=== PATIENT | female | born 1985 | race Caucasian/White ===

== ENCOUNTER 2018-02-08 17:11 | Outpatient (CLI) | payer MEDICAID, OTHER ==
[2018-02-08] MEDS: LACTATED RINGER'S 1,000 ML IV ×2 (17:57→20:02)
[2018-02-08] MEDS: BETAMET NA PHOS/AC(6 MG/ML) 5ML INJ IM (17:58)
[2018-02-08 18:34] LABS: ADD UMIC YES; UR ASCORBIC ACID 40 mg/dL (NEGATIVE); UR BILIRUBIN (Dip) NEGATIVE (NEGATIVE); UR BLOOD (Dip) NEGATIVE (NEGATIVE); UR CLARITY CLEAR (CLEAR); UR COLOR YELLOW (YELLOW); UR GLUCOSE (Dip) NEGATIVE (NEGATIVE); UR KETONES (Dip) NEGATIVE (NEGATIVE); UR LEUKOCYTE ESTERASE (Dip) TRACE Leu/ul (NEGATIVE); UR NITRITE (Dip) NEGATIVE (NEGATIVE); UR RBC 1 /HPF (0-5); UR SPECIFIC GRAVITY (Dip) 1.014 (1.003-1.030); UR TOTAL PROTEIN (Dip) NEGATIVE (NEGATIVE); UR UROBILINOGEN (Dip) NEGATIVE (NEGATIVE); UR WBC 1 /HPF (0-5)
[2018-02-08] MEDS: TERBUTALINE 1 MG/ML INJ SC (20:02)
== END 2018-02-08 21:40 | disposition home or self-care (01) ==
LOC: OBT 17:11 → L-D 17:12 → OBT 21:40
DX: O60.03 Preterm labor without delivery, third trimester (principal); Z3A.34 34 weeks gestation of pregnancy
CPT/HCPCS: 76818; 81001; 96360; 96372

== ENCOUNTER 2018-02-09 18:17 | Outpatient (CLI) | payer MEDICAID ==
[2018-02-09] MEDS: BETAMET NA PHOS/AC(6 MG/ML) 5ML INJ IM (18:36)
== END 2018-02-09 19:44 | disposition home or self-care (01) ==
LOC: OBT 18:17 → L-D 18:19 → OBT 19:44
DX: O62.9 Abnormality of forces of labor, unspecified (principal); Z3A.34 34 weeks gestation of pregnancy
CPT/HCPCS: 76818; 96372

== ENCOUNTER 2018-03-10 06:50 | Inpatient (IN) | payer MEDICAID ==
[2018-03-10] MEDS ORDERED: CARBOPROST 250 MCG INJ IM (08:00)
[2018-03-10] MEDS ORDERED: METHYLERGONOVINE 0.2 MG INJ IM (08:00)
[2018-03-10] MEDS ORDERED: BUTORPHANOL 2 MG INJ IV (08:00)
[2018-03-10] MEDS ORDERED: OXYCODONE/ACETAMINOPHEN (5/325) TAB PO (08:00)
[2018-03-10] MEDS ORDERED: LIDOCAINE 1% (MPF) 30 ML INJ INJ (08:00)
[2018-03-10] MEDS ORDERED: IBUPROFEN 600 MG TAB PO (08:00)
[2018-03-10] MEDS ORDERED: MISOPROSTOL 200 MCG TAB PR (08:00)
[2018-03-10] MEDS ORDERED: OXYTOCIN 30 UNITS/LR 500 ML IV (08:00)
[2018-03-10 08:12] LABS: ADD MAN DIFF? NO
[2018-03-10 08:19] LABS: BASOPHILS % 0.4 % (0.0-2.0); EOSINOPHILS # 0.2 10^3/ul (0.0-0.5); EOSINOPHILS % 2.5 % (0.0-7.0); HEMATOCRIT 39.5 % (37.0-47.0); HEMOGLOBIN 13.8 g/dl (12.0-16.0); LYMPHOCYTES # 1.5 10^3/ul (0.8-2.9); MEAN CORPUSCULAR HEMOGLOBIN 31.3 pg (29.0-33.0); MEAN CORPUSCULAR HGB CONC 34.9 g/dl (32.0-37.0); MEAN CORPUSCULAR VOLUME 89.6 fl (82.0-101.0); MEAN PLATELET VOLUME 9.6 fl (7.4-10.4); MONOCYTE # 0.7 10^3/ul (0.3-0.9); MONOCYTES % 8.8 % (0.0-11.0); NEUTROPHIL # 5.9 10^3/ul (1.6-7.5); NEUTROPHILS % 69.7 % (39.0-77.0); PLATELET COUNT 274 10^3/UL (140-415); RED BLOOD COUNT 4.41 10^6/ul (4.20-5.40); RED CELL DISTRIBUTION WIDTH 12.8 % (11.5-14.5)
[2018-03-10 08:19] LABS: WHITE BLOOD COUNT 8.4 10^3/ul (4.8-10.8)
[2018-03-10] MEDS: LACTATED RINGER'S 1,000 ML IV ×3 (08:21→10:28)
[2018-03-10 08:43] LABS: INR 0.93; PROTIME 12.5 Sec (11.9-14.9)
[2018-03-10 08:44] LABS: PARTIAL THROMBOPLASTIN TIME 31.3 Sec (25.0-35.0)
[2018-03-10] MEDS ORDERED: FENTAnyl 2MCG/ML-ROPIV 0.2% 100 ML (09:36)
[2018-03-10] MEDS ORDERED: FENTAnyl 2MCG/ML-ROPIV 0.2% 100 ML BAG EPI (10:30)
[2018-03-10] MEDS ORDERED: NALOXONE (0.4 MG/ML) INJ IV (10:30)
[2018-03-10] MEDS ORDERED: DIPHENHYDRAMINE 50 MG INJ IV (10:30)
[2018-03-10] MEDS ORDERED: ONDANSETRON 4 MG INJ IV ×2 (10:30→14:30)
[2018-03-10] MEDS: OXYTOCIN 30 UNITS/LR 500 ML IV ×3 (13:12→14:20)
[2018-03-10] MEDS ORDERED: WITCH HAZEL/GLYCERIN PAD PR (14:30)
[2018-03-10] MEDS ORDERED: OXYCODONE/ASPIRIN (4.88/325) TAB PO (14:30)
[2018-03-10] MEDS ORDERED: BENZOCAINE 20% 56 ML SPRAY TOP (14:30)
[2018-03-10] MEDS ORDERED: DIBUCAINE 1% 30 GM OINT PR (14:30)
[2018-03-10] MEDS ORDERED: LANOLIN 7 GM TUBE TOP (14:30)
[2018-03-10] MEDS ORDERED: ACETAMINOPHEN 325 MG TAB PO (14:30)
[2018-03-10] MEDS ORDERED: HYDROCODONE/APAP (5/325) TAB PO ×2 (14:30)
[2018-03-10] MEDS: IBUPROFEN 600 MG TAB PO ×2 (17:39→23:53)
[2018-03-10] MEDS: OXYCODONE/ASPIRIN (4.88/325) TAB PO (19:43)
[2018-03-10 20:38] LABS: RAPID PLASMA REAGIN NONREACTIVE (NR)
[2018-03-10] MEDS: SENNA/DOCUSATE NA (8.6MG/50MG) TAB PO (21:22)
[2018-03-11] MEDS: IBUPROFEN 600 MG TAB PO ×4 (06:00→23:36)
[2018-03-11] MEDS: OXYCODONE/ASPIRIN (4.88/325) TAB PO (06:46)
[2018-03-11] MEDS: SENNA/DOCUSATE NA (8.6MG/50MG) TAB PO ×2 (09:05→20:54)
[2018-03-11 09:25] LABS: ADD MAN DIFF? NO
[2018-03-11 09:28] LABS: BASOPHILS % 0.3 % (0.0-2.0); EOSINOPHILS # 0.2 10^3/ul (0.0-0.5); EOSINOPHILS % 2.2 % (0.0-7.0); HEMATOCRIT 38.5 % (37.0-47.0); HEMOGLOBIN 13.2 g/dl (12.0-16.0); LYMPHOCYTES # 1.5 10^3/ul (0.8-2.9); LYMPHOCYTES % 14.7 % (15.0-51.0); MEAN CORPUSCULAR HEMOGLOBIN 31.1 pg (29.0-33.0); MEAN CORPUSCULAR HGB CONC 34.3 g/dl (32.0-37.0); MEAN CORPUSCULAR VOLUME 90.8 fl (82.0-101.0); MEAN PLATELET VOLUME 9.4 fl (7.4-10.4); MONOCYTE # 0.6 10^3/ul (0.3-0.9); MONOCYTES % 5.9 % (0.0-11.0); NEUTROPHIL # 7.7 10^3/ul (1.6-7.5); NEUTROPHILS % 76.5 % (39.0-77.0); PLATELET COUNT 255 10^3/UL (140-415); RED BLOOD COUNT 4.24 10^6/ul (4.20-5.40); RED CELL DISTRIBUTION WIDTH 13.2 % (11.5-14.5)
[2018-03-12] MEDS: OXYCODONE/ASPIRIN (4.88/325) TAB PO ×3 (00:43→13:13)
[2018-03-12] MEDS: IBUPROFEN 600 MG TAB PO ×3 (06:22→17:46)
[2018-03-12] MEDS: SENNA/DOCUSATE NA (8.6MG/50MG) TAB PO (08:34)
[2018-03-12] MEDS: MEASLES,MUMPS,RUBELLA VACCINE INJ SC* (09:00)
== END 2018-03-12 18:35 | disposition home or self-care (01) | DRG 775 ==
LOC: OBT 06:50 → L-D 06:50 → OBT 07:26 → L-D 07:15 → PP1 18:51
PROVIDERS: Obstetrics & Gynecology
PROC: 10E0XZZ Delivery of Products of Conception, External Approach (ICD-10-PCS; principal; 2018-03-10)
PROC: 0HQ9XZZ Repair Perineum Skin, External Approach (ICD-10-PCS; 2018-03-10)
PROC: 3E033VJ Introduction of Other Hormone into Peripheral Vein, Percutaneous Approach (ICD-10-PCS; 2018-03-10)
DX: O70.0 First degree perineal laceration during delivery (principal); O69.81X0 Labor and delivery complicated by cord around neck, without compression, not applicable or unspecified; Z3A.38 38 weeks gestation of pregnancy; Z37.0 Single live birth
CPT/HCPCS: 62319; 76815; 85025; 85610; 85730; 86592; 86900; 86901